=== PATIENT | female | born 1930 | race Caucasian/White ===

== ENCOUNTER 2018-05-01 14:56 | Emergency (ER) | payer MEDICARE ==
--- NOTE | 2018-05-01 15:41 | EDM.PDOC ---
ED HPI GENERAL MEDICAL PROBLEM - General Chief Complaint: Genitourinary Problem Stated Complaint: UTI Time Seen by Provider: 05/01/18 14:56 Source of Information: Reports: Patient History Limitations: Reports: Physical Impairment - History of Present Illness INITIAL COMMENTS - FREE TEXT/NARRATIVE: 87 y.o.w.f was seen in the clinic and transferred to the ed due to suprapubic pain. A bladder scan and UA was recommended. Pt lives at an assisting living place with her , who is helping to take care of her. Pt is a poor historian. no other acute medical issues. BP 137/56 Temp 36.4 RR 16 Pulse ox 97 % on RA pulse 87 Onset Date: 05/01/18 Onset Time: 06:00 Duration: Intermittent, Waxing/Waning Location: Reports: Pelvis Quality: Reports: Burning Severity: Mild Improves with: Reports: Rest Worsens with: Reports: Movement Context: Reports: Other Associated Symptoms: Reports: Other - Related Data Allergies Allergy/AdvReac Type Severity Reaction Status Date / Time No Known Allergies Allergy Verified 05/01/18 18:07 Home Meds: Home Meds . [Unable to Verify Home Med List] 05/01/18 [History] ED ROS GENERAL - Review of Systems Review Of Systems: Unable To Obtain ED EXAM, RENAL/ - Physical Exam Exam: See Below Exam Limited By: Physical Impairment General Appearance: Alert, Mild Distress, Cachetic Eye Exam: Bilateral Eye: Normal Inspection Ears: Normal External Exam Nose: Normal Inspection Throat/Mouth: Normal Voice, No Airway Compromise Head: Atraumatic, Normocephalic Neck: Normal Inspection, Supple, Non-Tender, Full Range of Motion Respiratory/Chest: No Respiratory Distress (poor insp effort) Cardiovascular: Normal Peripheral Pulses, Regular Rate, Rhythm GI/Abdominal: Normal Bowel Sounds (Female) Exam: Deferred Rectal (Female) Exam: Deferred Back Exam: Normal Inspection Extremities: Normal Inspection Neurological: Alert, CN II-XII Intact, Memory Loss Remote Events, Other (unable to ambulate) Psychiatric: Depressed Mood Skin Exam: Warm, Dry, Intact Lymphatic: No Adenopathy Course - Vital Signs Text/Narrative:: 87 y.o.w.f was seen in the clinic and transferred to the ed due to suprapubic pain. A bladder scan and UA was recommended. Pt lives at an assisting living place with her , who is helping to take care of her. Pt is a poor historian. no other acute medical issues. BP 137/56 Temp 36.4 RR 16 Pulse ox 97 % on RA pulse 87 PE: Thin/cachectic 87 y.o.w.f with suprapubic pain Imaging: Bladder scanner showed 497 cc of residual volume in her bladder Labs: UA was neg for UTI Impression: Urinary retention Tx: Sanabria catheter with leg bag Reexam: Improved Plan: D/C with instructions Last Recorded V/S: Last Vital Signs Temp 36.3 C 05/01/18 15:00 Pulse 91 05/01/18 15:00 Resp 16 05/01/18 15:00 BP 137/56 L 05/01/18 15:00 Pulse Ox 97 05/01/18 15:00 - Orders/Labs/Meds Orders: Active Orders 24 hr Category Date Time Status Sanabria Catheter Insertion [Insert Urinary Catheter] [OM. Care 05/01/18 15:45 Ordered PC] Q24H Urinary Catheter Assessment [RC] QSHIFT Care 05/01/18 15:44 Active Labs: Laboratory Tests 05/01/18 Range/Units 16:05 Urine Color Yellow (YELLOW) Urine Appearance Clear (CLEAR) Urine pH 6.0 (5.0-6.5) Ur Specific [place] 1.020 (1.010-1.025) Urine Protein Negative (NEGATIVE) mg/dL Urine Glucose (UA) Normal (NEGATIVE) mg/dL Urine Ketones Negative (NEGATIVE) mg/dL Urine Occult Blood Negative (NEGATIVE) Urine Nitrite Negative (NEGATIVE) Urine Bilirubin Negative (NEGATIVE) Urine Urobilinogen Normal (NEGATIVE) mg/dL Ur Leukocyte Esterase Negative (NEGATIVE) Urine RBC 0-5 (0) Urine WBC 0-5 (0) Ur Squamous Epith Cells Few H (NS,R,O) Urine Bacteria Few H (NS) Urine Mucus Few H (NS) Departure - Departure Time of Disposition: 17:10 Disposition: Home, Self-Care 01 Condition: Good Clinical Impression: Urinary retention with incomplete bladder emptying - Discharge Information Instructions: Acute Urinary Retention, Female, [id number] Referrals: Richard Wilkes MD [Primary Care Provider] - Forms: ED Department Discharge Additional Instructions: Please leave the sanabria catheter in plays for now, please follow up with your PMD /urologist, please come back if your symptoms get worse acutely - My Orders Last 24 Hours: My Active Orders 05/01/18 15:44 Urinary Catheter Assessment [RC] QSHIFT 05/01/18 15:45 Sanabria Catheter Insertion [Insert Urinary Catheter] [OM.PC] Q24H - Assessment/Plan Last 24 Hours: My Active Orders 05/01/18 15:44 Urinary Catheter Assessment [RC] QSHIFT 05/01/18 15:45 Sanabria Catheter Insertion [Insert Urinary Catheter] [OM.PC] Q24H
== END 2018-05-01 17:15 | disposition home or self-care (01) ==
LOC: FB.ED 14:56
DX: R33.9 Retention of urine, unspecified (principal)
CPT/HCPCS: 51702; 51798; 81001; 99283

== ENCOUNTER 2018-06-21 06:05 | Emergency (ER) | payer MEDICARE ==
[2018-06-21] MEDS ORDERED: Sulfamethoxazole/Trimethoprim 800-160 MG Tab PO ONE (08:54)
--- NOTE | 2018-06-21 08:57 | EDM.PDOC ---
ED HPI GENERAL MEDICAL PROBLEM - General Chief Complaint: General Stated Complaint: Fall Time Seen by Provider: 06/21/18 06:10 Source of Information: Reports: Patient, Family History Limitations: Reports: No Limitations - History of Present Illness INITIAL COMMENTS - FREE TEXT/NARRATIVE: c/[facility] fall [facility] in [facility], does not remember what happened, thinks she fell out of bed has c/o pain at R cheek and R hip has chronic hip pain, takes APAP 500 mg TID at baseline, has a THR on L XR of R hip shows mild DJD today, CT of face shows no fractures dtr-in-law reports that pt had sanabria placed 2m ago for urinary retention, pt saw urologist 3w ago who said that the bladder was distention and that there was not much else that could be done with f/u in 1y son reports that Dr Wilkes tx'ed a UTI 1m ago - Related Data Allergies Allergy/AdvReac Type Severity Reaction Status Date / Time hydrocodone Allergy Other Verified 06/21/18 07:11 tramadol Allergy Other Verified 06/21/18 07:10 Home Meds: Home Meds .Cacitrate/Vit D3 650/500 1 tab PO BID 06/21/18 [History] Acetaminophen 500 mg PO TID 06/21/18 [History] Aspirin [Halfprin] 81 mg PO DAILY 06/21/18 [History] Diclofenac Sodium [Voltaren 1% Gel] 1 applic TOP TID 06/21/18 [History] Gluc HCl/Csa/Ld Hy/Hyalur Ac [Glucosamine Chondroitin] 1 each PO BID 06/21/18 [History] Levothyroxine [Synthroid] 50 mcg PO ACBREAKFAST 06/21/18 [History] Mirtazapine 7.5 mg PO DAILY 06/21/18 [History] Omeprazole 20 mg PO DAILY 06/21/18 [History] Polyethylene Glycol 3350 [MiraLAX] 17 gm PO DAILY 06/21/18 [History] Sulfamethoxazole/Trimethoprim [Bactrim 400-80 MG] 1 each PO BID #13 tablet 06/21 [Rx] Past Medical History Genitourinary History: Reports: Other (See Below) Other Genitourinary History: UTI- probable urinary retention FAMILY LAW ATTORNEY History: Reports: Other FAMILY LAW ATTORNEY History: 3 children Neurological History: Reports: Alzheimers Disease ED ROS GENERAL - Review of Systems Review Of Systems: See Below Constitutional: Reports: No Symptoms HEENT: Reports: No Symptoms Respiratory: Reports: No Symptoms Cardiovascular: Reports: No Symptoms Endocrine: Reports: No Symptoms GI/Abdominal: Reports: No Symptoms : Reports: No Symptoms Musculoskeletal: Reports: Joint Pain, Other (face pain) Skin: Reports: No Symptoms Neurological: Reports: No Symptoms Psychiatric: Reports: No Symptoms Hematologic/Lymphatic: Reports: No Symptoms Immunologic: Reports: No Symptoms ED EXAM, GENERAL - Physical Exam Exam: See Below Exam Limited By: No Limitations General Appearance: Alert, WD/WN, No Apparent Distress, Other (alert, pleasant, conversant) Eye Exam: Bilateral Eye: EOMI, PERRL Ears: Normal External Exam, Normal Canal Nose: Normal Inspection, Normal Mucosa, No Blood Throat/Mouth: Normal Inspection, Normal Lips, Normal Teeth, Normal Gums, Normal Oropharynx, Normal Voice, No Airway Compromise Head: Other (moderate swell over R cheek in 10 x 8 x 1 cm area with some central ecchymosis and partial closure of R eye altho able to open spontaeously , 1+ tender over R zygomatic arch and R max sinus) Neck: Normal Inspection, Supple, Non-Tender, Full Range of Motion Respiratory/Chest: No Respiratory Distress Cardiovascular: Regular Rate, Rhythm, No Edema GI/Abdominal: Soft, Non-Tender, No Distention Back Exam: Normal Inspection, Full Range of Motion. No: CVA Tenderness (R), CVA Tenderness (L) Extremities: Normal Inspection, Normal Range of Motion, Non-Tender, Other (good ROM of both hips) Neurological: Alert, CN II-XII Intact, No Motor/Sensory Deficits Psychiatric: Normal Affect, Normal Mood Skin Exam: Warm, Dry, Intact, Normal Color, No Rash Lymphatic: No Adenopathy Course - Orders/Labs/Meds Orders: Active Orders 24 hr Category Date Time Status Hip Min 2V or 3V w Pelvis Rt [CR] Stat Exams 06/21/18 06:31 Taken Max Facial Sinus wo Cont [CT] Stat Exams 06/21/18 06:30 Taken CULTURE URINE [RM] Stat Lab 06/21/18 08:47 Ordered Labs: Laboratory Tests 06/21/18 Range/Units 06:30 Urine Color Yellow (YELLOW) Urine Appearance Cloudy (CLEAR) Urine pH 5.0 (5.0-6.5) Ur Specific [place] 1.020 (1.010-1.025) Urine Protein 100 H (NEGATIVE) mg/dL Urine Glucose (UA) Normal (NORMAL) mg/dL Urine Ketones Negative (NEGATIVE) mg/dL Urine Occult Blood Large H (NEGATIVE) Urine Nitrite Negative (NEGATIVE) Urine Bilirubin Negative (NEGATIVE) Urine Urobilinogen Normal (NEGATIVE) mg/dL Ur Leukocyte Esterase Large H (NEGATIVE) Urine RBC >100 H (0-5) Urine WBC >100 H (0-5) Ur Squamous Epith Cells Few H (NS,R,O) Urine Bacteria Many H (NS) Departure - Departure Time of Disposition: 08:51 Disposition: DC/Tfer to [facility] Condition: Good Clinical Impression: Facial contusion, Osteoarthritis of right hip, Urinary tract infection - Discharge Information *PRESCRIPTION DRUG MONITORING PROGRAM REVIEWED*: Not Applicable *COPY OF PRESCRIPTION DRUG MONITORING REPORT IN PATIENT ANGELA: Not Applicable Prescriptions: Sulfamethoxazole/Trimethoprim [Bactrim 400-80 MG] 1 each PO BID #13 tablet Instructions: Catheter-Associated Urinary Tract Infection FAQs - [facility] Referrals: Richard Wilkes MD [Primary Care Provider] - Additional Instructions: Continue current meds. Increase acetaminophen to 500 mg 2 tabs TID for 1 week, then decrease back to 500 mg 1 tab TID. For infection, take Bactrim DS 1 tab 2 times a day for 1 week. Recheck a urinalysis in 10 days. Change sanabria. See her physician in one week. Return to ED if feeling worse. - My Orders Last 24 Hours: My Active Orders 06/21/18 06:30 Max Facial Sinus wo Cont [CT] Stat 06/21/18 06:31 Hip Min 2V or 3V w Pelvis Rt [CR] Stat 06/21/18 08:47 CULTURE URINE [RM] Stat - Assessment/Plan Last 24 Hours: My Active Orders 06/21/18 06:30 Max Facial Sinus wo Cont [CT] Stat 06/21/18 06:31 Hip Min 2V or 3V w Pelvis Rt [CR] Stat 06/21/18 08:47 CULTURE URINE [RM] Stat
== END 2018-06-21 09:35 ==
LOC: FB.ED 06:05
DX: S00.83XA Contusion of other part of head, initial encounter (principal); M16.11 Unilateral primary osteoarthritis, right hip; N39.0 Urinary tract infection, site not specified; G30.9 Alzheimer's disease, unspecified; F02.80 Dementia in other diseases classified elsewhere, unspecified severity, without behavioral disturbance, psychotic disturbance, mood disturbance, and anxiety; Z79.899 Other long term (current) drug therapy; Z88.5 Allergy status to narcotic agent; Z88.6 Allergy status to analgesic agent; Z79.82 Long term (current) use of aspirin; W06.XXXA Fall from bed, initial encounter
CPT/HCPCS: 70486; 73502-RT; 81001; 87086; 87186; 99284-25

== ENCOUNTER 2018-07-30 08:05 | Day surgery (SDC) | payer MEDICARE ==
[2018-07-30] MEDS ORDERED: Ondansetron 4 MG/2 ML SDV IVPUSH ONE (08:06)
[2018-07-30] MEDS ORDERED: Lidocaine 1% PF 2 ML SDV INJECT ONE (08:06)
[2018-07-30] MEDS ORDERED: Rocuronium 50 MG/5 ML Vial IV ONE (08:06)
[2018-07-30] MEDS ORDERED: fentaNYL 100 MCG/2 ML SDV IV ONE (08:06)
[2018-07-30] MEDS ORDERED: Propofol 200 MG/20 ML SDV IV ONE (08:06)
[2018-07-30] MEDS ORDERED: Lidocaine 2% 100 MG/5 ML Syringe IVPUSH ONE (08:06)
[2018-07-30] MEDS ORDERED: Glycopyrrolate 0.2 MG/ML 5 ML MDV IV ONE (08:06)
[2018-07-30] MEDS ORDERED: Phenylephrine 1% 10 MG/ML SDV IV ONE (08:06)
[2018-07-30] MEDS ORDERED: Midazolam 1 MG/ML 2 ML SDV IV ONE (08:06)
[2018-07-30] MEDS ORDERED: Ropivacaine 0.5% 5 MG/ML 30 ML SDV INJECT ONE (08:06)
[2018-07-30] MEDS ORDERED: Lactated Ringers 1,000 ML IV ONE (08:06)
[2018-07-30] MEDS ORDERED: Neostigmine Methylsulfate 10 MG/10 ML MDV IVPUSH ONE (08:06)
[2018-07-30] MEDS ORDERED: Sodium Chloride 0.9% 10 ML Syringe FLUSH PRN (08:30)
[2018-07-30] MEDS ORDERED: Scopolamine 1.5 MG Transdermal Patch TRDERM ONE (08:30)
[2018-07-30] MEDS ORDERED: ceFAZolin 2 GM in Premix Bag 1 BAG IV ONE (08:30)
[2018-07-30] MEDS ORDERED: ceFAZolin 2 GM in Sodium Chloride 0.9% 100 ML IV ONE (08:30)
[2018-07-30] MEDS ORDERED: Ropivacaine 49.25 ML, Ketorolac 30 MG, EPINEPHrine 0.5 MG, cloNIDine 80 MCG, Sodium Chl... INJECT ONE ×5 (08:30)
[2018-07-30] MEDS ORDERED: Acetaminophen 500 MG Tab PO ONE (08:30)
[2018-07-30] MEDS ORDERED: Tranexamic Acid 3,000 MG, Sodium Chloride 0.9% 100 ML IRR ONE ×2 (09:00)
[2018-07-30] MEDS: Lactated Ringers 1,000 ML IV SCH ×2 (09:12→15:58)
[2018-07-30] MEDS ORDERED: Magnesium Hydroxide 400 MG/5 ML Susp 30 ML Cup PO PRN (12:33)
[2018-07-30] MEDS ORDERED: Sennosides 8.6 MG Tab PO PRN (12:33)
[2018-07-30] MEDS ORDERED: Ondansetron 4 MG/2 ML SDV IVPUSH PRN (12:33)
[2018-07-30] MEDS ORDERED: Docusate Sodium 100 MG Cap PO PRN (12:33)
[2018-07-30] MEDS ORDERED: traMADol 50 MG Tab PO PRN (12:33)
[2018-07-30] MEDS ORDERED: Morphine 2 MG/ML Syringe IVPUSH PRN (12:33)
[2018-07-30] MEDS ORDERED: Famotidine 20 MG/2 ML SDV IVPUSH SCH (13:00)
--- NOTE | 2018-07-30 13:56 | PCM.SN ---
- Free Text/Narrative Note: ANESTHESIA ACUTE PAIN SERVICE Date: 07/30/2018 Time: 0950 to 1000 Preoperative Dx: Left Humeral Head Fx Postoperative Rx: Left Shoulder Hemiarthroplasty Surgeon request Postoperative Pain Control per Regional Anesthesia Procedure: Left Interscalene Nerve Block with Ultrasound [U/S] Guidance and Nerve stimulation. Risks and benefits discussed with the family and the patient including block failure or inadequate pain relief. The family [POA] and the patient agree to proceed and a consent obtained. Monitors: NIBP, heart rate, SpO2 and O2 per nasal cannula at 3L/min Sedation : Versed .5 mg IV She was easily aroused and orientated to questions throughout this procedure. Using direct U/S visualization, I did a preprocedure scan locating the left Subclavian Artery and Brachial Plexus. I prepped the area with Chlora-Prep X 1 swab and allowed it to dry. Using aseptic technique, I relocated my insertion site and infiltrated it with 2 ml's of 1% Lidocaine plain using a 27 Ga 1.25 inch needle. With using the U/S I inserted and advanced a 22 Ga 2 inch Stimuplex Ultra 360 Insulated Echogenic Needle to a good placement. I had a positive response of her left forearm at .44 mA using the nerve stimulator. The response stopped after an injection of 1 ml of normal saline through the needle. Under direct U/S visualization, a total of 20 ml's .5% Naropin in divided doses was given slowly and multiple negative aspirations for blood were done. She tolerated this very well. She had no shoulder pain after this nerve block and no apparent complications were noted. Documentation: Please see the PAX System in Radiology for U/S pictures. Thank you for allowing us to provide this service. Kevin Ugalde CRNA Kathryn
[2018-07-30] MEDS ORDERED: Acetaminophen 500 MG Tab PO SCH (14:00)
[2018-07-30] MEDS: Acetaminophen 500 MG Tab PO SCH ×2 (14:10→20:30)
[2018-07-30] MEDS: Famotidine/Normal Saline 20 MG/50 ML BAG IV SCH (14:15)
--- NOTE | 2018-07-30 17:07 | OR ---
DATE OF OPERATION: 07/30/2018 SURGEON: Nick Collins DO PREOPERATIVE DIAGNOSIS: Left shoulder proximal humerus fracture. POSTOPERATIVE DIAGNOSIS: Chronic left proximal humerus fracture. ANESTHESIA: General endotracheal intubation plus interscalene block. PROCEDURE: Left shoulder hemiarthroplasty. ESTIMATED BLOOD LOSS: 100 mL. COMPLICATIONS: None. SPECIMEN: None. DISCHARGE DISPOSITION: Stable to PACU. INSTRUMENTATION: Andree size-12 modular humeral stem press-fit and a size-48 24-mm thickness ReUnion TSA single-radius humeral head. INDICATIONS FOR THE PROCEDURE: The patient was seen in clinic two days ago. The patient's family had noticed some bruising on the medial aspect of her arm and that she was using it less. She does live at a care facility for dementia. Preoperative imaging showed a proximal humerus fracture at the anatomic neck. Risks and benefits of the procedure were explained to the patient. Informed consent was obtained. DETAILS OF PROCEDURE: The patient was seen preoperatively by myself and the Anesthesia staff at the preoperative holding area, where the operative site was marked. She was brought to another preoperative holding area for an interscalene block, which was performed. She was then brought to the operative suite, where general anesthesia was administered. She was placed into a beach- chair position. All extremities were found to be well padded. The neck was slightly flexed. The left upper extremity was then prepped and draped in a sterile manner. Time-out was called identifying the correct patient, the correct procedure, the correct site, and that the antibiotics had been begun within the appropriate period of time. An incision was made on the medial aspect of the coracoid and proximal about 1 cm in an oblique manner down just laterally to the axillary fold. Bleeding during the case was controlled with Bovie electrocautery. We went down to the deltopectoral interval, which was easily identified. The cephalic vein was identified and it went through the deltopectoral interval. The cephalic vein did tear and this was ligated using 2-0 Vicryl and cautery. I then went through the deltopectoral fascia and identified the capsule. I then split the capsule and tagged both sides of the capsule and the subscapularis. I then removed the subscapularis and moved it medially and then removed the proximal 1 cm of the pectoralis major insertion on the humerus. The axillary nerve was palpated and avoided during the case. Inferiorly, the humeral head was identified, and I used bone tenaculums to hold this and then removed it from its capsular attachments circumferentially. The rotator cuff was never identified during the case. The biceps tendon was not visualized during the case. The humeral head was obviously a chronic fracture. It looked like this had actually healed previously, maybe two other times, and then when we brought the shaft proximal and anterior, it was evident that this was chronic as there was overgrowth over the midportion of the shaft. We then put in an entry reamer and subsequent reamers up to a 12. No medial calcar was visualized as I think that this had worn down over time or was part of a fracture fragment, which was no longer there after wearing down. We then broached from 7 to 12 and then I placed some trial heads. It was evident to me at that point that because of the previous fractures and the chronicity, that I would need to take down more of the humeral shaft to approximate where the calcar used to be. I did this and then re- broached and then placed multiple trials and finally settled on the 24 x 48. I took a radiograph of this using sterilely-draped fluoroscopy unit after suturing the anterior capsule to make sure that this was going to stay in. After I was convinced that it will be stable at least to 80 degrees of flexion and abduction, that we removed all of our components, copiously irrigated with Betadine-infused irrigation and then placed our final components in place. What I did then was to do a [id number] imbrication of the anterior capsule to further tighten it, and I did this with two #5 Ethibond and #1 STRATAFIX in a running manner. I then used a #1 Ethibond to attach the subscapularis to its insertion point and then used a STRATAFIX to close the inferior portion of the capsule in continuity with the anterior capsule for stability. I then took final films in multiple positions including full internal rotation, 50 degrees external rotation, as well as abduction and external rotation. The components stayed located throughout this range of motion. We then irrigated again with saline. I did apply topical TXA as well as applied a periarticular injection and then closed the deltopectoral interval with #1 STRATAFIX and the subcutaneous closure with #1 STRATAFIX in a running manner, followed by skin monet, followed by Betadine-soaked Adaptic and a sterile dressing. The patient was then allowed to awaken from general anesthesia, transferred to her hospital bed and taken to the PACU in a stable condition. /[id number] BS/MODL
[2018-07-30] MEDS ORDERED: ceFAZolin 2 GM in Sodium Chloride 0.9% 50 ML IV SCH (18:00)
[2018-07-30] MEDS: RIVASTIGMINE TARTRATE 1.5 MG PO SCH (18:30)
[2018-07-30] MEDS: ceFAZolin 1 GM Vial IV SCH (18:30)
[2018-07-30] MEDS ORDERED: [UNRECOGNIZED DRUG - OTHER] PO SCH (21:00)
[2018-07-30] MEDS ORDERED: VIT D3 PO SCH (21:00)
[2018-07-30] MEDS ORDERED: Non-Formulary Medication 1 Each (Mirtazapine [Mirtazapine] 15 MG) PO SCH (21:00)
[2018-07-31] MEDS: Lactated Ringers 1,000 ML IV SCH (00:52)
[2018-07-31] MEDS: ceFAZolin 1 GM Vial IV SCH (01:03)
[2018-07-31] MEDS: Famotidine/Normal Saline 20 MG/50 ML BAG IV SCH (01:04)
[2018-07-31] MEDS: Levothyroxine 50 MCG Tab*PTOM PO SCH ×2 (05:17→08:41)
--- NOTE | 2018-07-31 08:41 | PCM.CONS ---
H&P History of Present Illness - General Date of Service: 07/31/18 Admit Problem/Dx: Admission Diagnosis/Problem Admission Diagnosis/Problem Shoulder pain Source of Information: Patient, Old Records History Limitations: Reports: Other (Dementia) - History of Present Illness Initial Comments - Free Text/Narative: This is an 88-year-old female patient lives at [facility] in the memory unit. She has a history of late onset Alzheimer's disease. She had a humeral head fracture and left arm. Dr. Collins repair yesterday. We've been asked to consult regards to medication management in the hospital. Today the patient has no concerns. She says yesterday she had bad pain in her left arm but now her pain is controlled. She denies fevers, chills, chest pain, palpitations, shortness of breath, wheezing or cough or leg swelling. Left Shoulder Pain Score (Numeric/FACES): 8 - Related Data Allergies/Adverse Reactions: Allergies Allergy/AdvReac Type Severity Reaction Status Date / Time hydrocodone Allergy Other Verified 07/30/18 08:38 tramadol Allergy Other Verified 07/30/18 08:38 Home Medications: Home Meds Acetaminophen 1,000 mg PO 06,14,22 06/21/18 [History] Aspirin [Halfprin] 81 mg PO DAILY 06/21/18 [History] Diclofenac Sodium [Voltaren 1% Gel] 4 gm TOP TID 06/21/18 [History] Gluc HCl/Csa/Ld Hy/Hyalur Ac [Glucosamine Chondroitin] 1 each PO BID 06/21/18 [History] Levothyroxine [Synthroid] 50 mcg PO ACBREAKFAST 06/21/18 [History] Mirtazapine 15 mg PO BEDTIME 06/21/18 [History] Polyethylene Glycol 3350 [MiraLAX] 17 gm PO DAILY 06/21/18 [History] Calcium Carb & Citrate/Vit D3 [Calcium + D3 ER Tablet] 2 tab PO BIDMEALS [History] Omeprazole 20 mg PO ACBREAKFAST 07/29/18 [History] Rivastigmine Tartrate [Rivastigmine] 1.5 mg PO BIDMEALS 07/29/18 [History] traZODone HCl [Trazodone HCl] 25 mg PO BEDTIME 07/30/18 [History] Past Medical History Gastrointestinal History: Reports: GERD Genitourinary History: Reports: Chronic Renal Insuffiency, Retention, Urinary, Other (See Below) Other Genitourinary History: UTI- probable urinary retention SOFTWARE PROJECT [employer] History: Reports: Other OB/BYN History: 3 children Musculoskeletal History: Reports: Fracture, Osteoarthritis Other Musculoskeletal History: HUMERAL HEAD FRACTURE OF LEFT ARM, METACARPAL FX Neurological History: Reports: Alzheimers Disease Psychiatric History: Reports: Alzheimers Disease Endocrine/Metabolic History: Reports: Hypothyroidism - Past Surgical History HEENT Surgical History: Reports: Tonsillectomy Other HEENT Surgeries/Procedures: NECK SURGERY GI Surgical History: Reports: Appendectomy, Cholecystectomy, Hernia, Abdominal Female Surgical History: Reports: D&C Musculoskeletal Surgical History: Reports: Hip Replacement Social & Family History - Tobacco Use Smoking Status *Q: Never Smoker - Caffeine Use Caffeine Use: Reports: Tea - Recreational Drug Use Recreational Drug Use: No Drug Use in Last 12 Months: No - Living Situation & Occupation Living situation: Reports: Assisted Living Occupation: Retired H&P Review of Systems - Review of Systems: Review Of Systems: See Below General: Reports: No Symptoms HEENT: Reports: No Symptoms Pulmonary: Reports: No Symptoms Cardiovascular: Reports: No Symptoms Gastrointestinal: Reports: No Symptoms Genitourinary: Reports: No Symptoms Musculoskeletal: Reports: Shoulder Pain Skin: Reports: No Symptoms Psychiatric: Reports: No Symptoms Neurological: Reports: No Symptoms Hematologic/Lymphatic: Reports: No Symptoms Immunologic: Reports: No Symptoms Exam - Exam Exam: See Below - Vital Signs Vital Signs: Last Vital Signs Temp 97.8 F 07/30/18 18:15 Pulse 68 07/30/18 18:15 Resp 20 07/30/18 18:15 BP 102/62 07/30/18 18:15 Pulse Ox 95 07/30/18 18:15 Weight: 124 lb - Exam General: Alert, Cooperative. No: Oriented HEENT: Hearing Intact, Mucosa Moist & [place], Posterior Pharynx Clear, TMs Clear Neck: Supple, Trachea Midline. No: Lymphadenopathy, Carotid Bruit Lungs: Clear to Auscultation, Normal Respiratory Effort. No: Crackles, Rales, Rhonchi Cardiovascular: Regular Rate, Regular Rhythm, Normal S1, Normal S2. No: Systolic Murmur, Diastolic Murmur GI/Abdominal Exam: Normal Bowel Sounds, Soft, Non-Tender. No: No Distention Back Exam: Normal Inspection Extremities: No Pedal Edema, Other (Left arm in a sling. She can move her left hand without any difficulty.) Skin: Warm, Dry, Intact Neuro Extensive - Mental Status: Alert, Normal Mood/Affect, Normal Cognition. No: Oriented x3, Memory Intact Psychiatric: Alert, Normal Affect, Normal Mood - Patient Data Lab Results Last 24 hrs: Laboratory Results - last 24 hr 07/31/18 07/31/18 Range/Units 06:14 06:14 WBC 10.4 (4.5-12.0) X10-3/uL RBC 2.99 L (3.23-5.20) x10(6)uL Hgb 9.4 L (11.5-15.5) g/dL Hct 28.1 L (30.0-51.3) % MCV 93.8 (80-96) fL MCH 31.6 (27.7-33.6) pg MCHC 33.6 (32.2-35.4) g/dL RDW 12.6 (11.5-15.5) % Plt Count 247 (125-369) X10(3)uL MPV 8.8 (7.4-10.4) fL Neut % (Auto) 80.2 (46-82) % Lymph % (Auto) 10.0 L (13-37) % [place] % (Auto) 8.1 (4-12) % Eos % (Auto) 1 (1.0-5.0) % Baso % (Auto) 1 (0-2) % Neut # (Auto) 8.4 H (1.6-8.3) # Lymph # (Auto) 1.0 (0.6-5.0) # [place] # (Auto) 0.8 (0.0-1.3) # Eos # (Auto) 0.1 (0.0-0.8) # Baso # (Auto) 0.1 (0.0-0.2) # Sodium 140 (135-145) mmol/L Potassium 4.0 (3.5-5.3) mmol/L Chloride 105 (100-110) mmol/L Carbon Dioxide 27 (21-32) mmol/L BUN 20 H (7-18) mg/dL Creatinine 1.2 H (0.55-1.02) mg/dL Est Cr Clr Drug Dosing 29.88 mL/min Estimated GFR (MDRD) 43 L (>60) BUN/Creatinine Ratio 16.7 (9-20) Glucose 118 H (80-116) mg/dL Calcium 8.8 (8.6-10.2) mg/dL Result Diagrams: 07/31/18 06:14 07/31/18 06:14 Consult PN Assessment/Plan Procedures: Procedures BLOOD TYPING SEROLOGIC ABO (07/28/18) BLOOD TYPING SEROLOGIC RH(D) (07/28/18) CT MAXILLOFACIAL W/O DYE (06/21/18) EMERGENCY DEPT VISIT (06/21/18) EMERGENCY DEPT VISIT (05/01/18) INSERT TEMP BLADDER CATH (05/04/18) MICROBE SUSCEPTIBLE JUAN ALBERTO (06/21/18) RBC ANTIBODY SCREEN (07/28/18) ROUTINE VENIPUNCTURE (07/28/18) URINALYSIS AUTO W/SCOPE (06/21/18) URINE CULTURE/COLONY COUNT (06/21/18) US EXAM ABDOM COMPLETE (05/07/18) US URINE CAPACITY MEASURE (05/01/18) X-RAY EXAM HIP UNI 2-3 VIEWS (06/21/18) (1) Status post total shoulder arthroplasty SNOMED Code(s): 513539493, 229949957 Code(s): Z96.619 - PRESENCE OF UNSPECIFIED ARTIFICIAL SHOULDER JOINT Current Visit: Yes (2) Alzheimers disease SNOMED Code(s): 56068548 Code(s): G30.9 - ALZHEIMER'S DISEASE, UNSPECIFIED; F02.80 - DEMENTIA IN OTH DISEASES CLASSD ELSWHR W/O BEHAVRL DISTURB Current Visit: Yes (3) Palliative care status SNOMED Code(s): 206798803 Code(s): Z51.5 - ENCOUNTER FOR PALLIATIVE CARE Current Visit: Yes (4) Stage III chronic kidney disease SNOMED Code(s): 622569560 Code(s): N18.3 - CHRONIC KIDNEY DISEASE, STAGE 3 (MODERATE) Current Visit: Yes (5) Hypothyroidism SNOMED Code(s): 78629499 Code(s): E03.9 - HYPOTHYROIDISM, UNSPECIFIED Current Visit: Yes (6) Osteoarthritis of knees, bilateral SNOMED Code(s): 043382766735325 Code(s): M17.0 - BILATERAL PRIMARY OSTEOARTHRITIS OF KNEE Current Visit: Yes (7) Urinary retention SNOMED Code(s): 170975966 Code(s): R33.9 - RETENTION OF URINE, UNSPECIFIED Current Visit: Yes (8) GERD (gastroesophageal reflux disease) SNOMED Code(s): 211969650 Code(s): K21.9 - GASTRO-ESOPHAGEAL REFLUX DISEASE WITHOUT ESOPHAGITIS Current Visit: Yes Problem List Initiated/Reviewed/Updated: Yes Plan: 1. Medical management along side with orthopedics doing surgical management 2. Patient's a DNR and I'll be changed of the surgeries over. 3. Patient's on Lovenox for DVT prophylaxis. 4. Home medications of and reconcile except for the trazodone. 5. Regular diet 6. PT/OT evaluation
[2018-07-31] MEDS ORDERED: Enoxaparin 30 MG/0.3 ML Syringe SUBCUT SCH (09:00)
--- NOTE | 2018-07-31 09:11 | US ---
INDICATION: [place] block. ULTRASOUND, RFA GUIDANCE, LEFT SHOULDER: Multiple ultrasonic images and real time imaging were utilized in guidance for left shoulder nerve block. MTDD
--- NOTE | 2018-07-31 09:21 | CR ---
INDICATION: Left shoulder arthroplasty. C-ARM FLUOROSCOPY UP TO 1 HOUR IN OR: 0.3 minutes C-arm fluoroscopy time were utilized in guidance for shoulder arthroplasty. Five fluoroscopic spot images were obtained, revealing adequate position and alignment of the humeral prosthesis for shoulder arthroplasty. Position and alignment appear to be satisfactory, as visualized. A definite complicating process was not identified. MTDD
[2018-07-31] MEDS: RIVASTIGMINE TARTRATE 1.5 MG PO SCH (09:23)
[2018-07-31] MEDS: Acetaminophen 500 MG Tab PO SCH (09:26)
--- NOTE | 2018-07-31 10:18 | PCM.OPNOTE ---
- General Post-Op/Procedure Note Date of Surgery/Procedure: 07/30/18 Operative Procedure(s): left shoulder hemiarthroplasty Pre Op Diagnosis: left shoulder proximal humerus fx Post-Op Diagnosis: left shoulder chronic proximal humerus fx Anesthesia Technique: General ET Tube Primary Surgeon: Nick Collins Anesthesia Provider: Kevin Ugalde EBL in mLs: 100 Complications: none Condition: Good Free Text/Narrative:: Intake & Output 07/30/18 07/31/18 07/31/18 22:59 06:59 14:59 Intake Total 880 Output Total 425 Balance -425 880
--- NOTE | 2018-07-31 10:26 | PCM.DCSUM1 ---
Discharge Summary - Hospital Course HPI Initial Comments: 88 yo female with chronic left proximal humerus fracture after multiple falls Diagnosis: Stroke: No Modified [place] Scale: Mod.Sev.Disability ;Unable to Walk/Attend Bodily Needs W/ O Assistance Modified [place] Scale Score: 4 - Discharge Data Discharge Date: 07/31/18 Discharge Disposition: Home, Self-Care 01 Condition: Good - Discharge Diagnosis/Problem(s) (1) Closed fracture of left proximal humerus SNOMED Code(s): 96130942 ICD Code: S42.202A - UNSP FRACTURE OF UPPER END OF LEFT HUMERUS, INIT FOR CLOS FX Status: Acute Current Visit: Yes Qualifiers: Encounter type: initial encounter Fracture alignment: displaced (2) Status post total shoulder arthroplasty SNOMED Code(s): 683934723, 840452666 ICD Code: Z96.619 - PRESENCE OF UNSPECIFIED ARTIFICIAL SHOULDER JOINT Status: Acute Current Visit: Yes - Patient Summary/Data Operative Procedure(s) Performed: left shoulder hemiarthroplasty Complications: none Consults: Consultations 07/30/18 12:33 Respiratory Care Assess and Treatment [CONS] Routine Comment: Physician Instructions: Post-Op Pneumonia Prevention 07/30/18 12:41 Consult to Physician [CONS] Routine Consulting Provider: Bebo Lam Courtesy Call Completed to Consulting Physician: [email or web address] 07/30/18 15:00 OT Evaluation and Treatment [CONS] Routine Please Evaluate and Treat. OT Reason for Consult: Strengthening This query below is only for informational purposes and is not editable. Admission Diagnosis/Problem: Shoulder pain PT Evaluation and Treatment [CONS] Routine Please Evaluate and Treat. PT Reason for Consult: Strengthening This query below is only for informational purposes and is not editable. Admission Diagnosis/Problem: Shoulder pain Recommended Follow-up Testing/Procedures: f/u in 2 weeks in clinic. Clinic will call with appt time and date Hospital Course: uneventful recovery post op without complications - Patient Instructions Diet: Usual Diet as Tolerated Activity: Non Weight Bearing, No Strenuous Activities Activity, Other: no rom of left upper extremity, keep in sling Driving: Do Not Drive Showering/Bathing: May Shower, No Tub Bathing/Swimming Wound/Incision Care: Keep Operative Site/Wound Site Clean and Dry Wound/Incision, Other: change dressing 08/01 and then daily thereafter Notify Provider of: Fever, Increased Pain, Swelling and Redness, Drainage, Nausea and/or Vomiting - Discharge Plan *PRESCRIPTION DRUG MONITORING PROGRAM REVIEWED*: Not Applicable *COPY OF PRESCRIPTION DRUG MONITORING REPORT IN PATIENT ANGELA: Not Applicable Home Medications: Home Meds Acetaminophen 1,000 mg PO 06,14,22 06/21/18 [History] Aspirin [Halfprin] 81 mg PO DAILY 06/21/18 [History] Diclofenac Sodium [Voltaren 1% Gel] 4 gm TOP TID 06/21/18 [History] Gluc HCl/Csa/Ld Hy/Hyalur Ac [Glucosamine Chondroitin] 1 each PO BID 06/21/18 [History] Levothyroxine [Synthroid] 50 mcg PO ACBREAKFAST 06/21/18 [History] Mirtazapine 15 mg PO BEDTIME 06/21/18 [History] Polyethylene Glycol 3350 [MiraLAX] 17 gm PO DAILY 06/21/18 [History] Calcium Carb & Citrate/Vit D3 [Calcium + D3 ER Tablet] 2 tab PO BIDMEALS [History] Omeprazole 20 mg PO ACBREAKFAST 07/29/18 [History] Rivastigmine Tartrate [Rivastigmine] 1.5 mg PO BIDMEALS 07/29/18 [History] traZODone HCl [Trazodone HCl] 25 mg PO BEDTIME 07/30/18 [History] Oxygen Therapy Mode: Room Air - Discharge Summary/Plan Comment DC Time >30 min.: No - Review of Systems General: Reports: Weakness HEENT: Reports: No Symptoms Pulmonary: Reports: No Symptoms Cardiovascular: Reports: No Symptoms Gastrointestinal: Reports: No Symptoms Genitourinary: Reports: No Symptoms Musculoskeletal: Reports: Arm Pain, Joint Pain, Joint Swelling Skin: Reports: Bruising Neurological: Reports: Confusion Psychiatric: Reports: Confusion Systems Review Comment: patient is at baseline neuro/psych - Patient Data Vitals - Most Recent: Last Vital Signs Temp 97.8 F 07/30/18 18:15 Pulse 68 07/30/18 18:15 Resp 20 07/30/18 18:15 BP 102/62 07/30/18 18:15 Pulse Ox 95 07/30/18 18:15 Weight - Most Recent: 124 lb I&O - Last 24 hours: Intake & Output 07/30/18 07/31/18 07/31/18 22:59 06:59 14:59 Intake Total 880 Output Total 425 Balance -425 880 Lab Results - Last 24 hrs: Laboratory Results - last 24 hr 07/31/18 07/31/18 Range/Units 06:14 06:14 WBC 10.4 (4.5-12.0) X10-3/uL RBC 2.99 L (3.23-5.20) x10(6)uL Hgb 9.4 L (11.5-15.5) g/dL Hct 28.1 L (30.0-51.3) % MCV 93.8 (80-96) fL MCH 31.6 (27.7-33.6) pg MCHC 33.6 (32.2-35.4) g/dL RDW 12.6 (11.5-15.5) % Plt Count 247 (125-369) X10(3)uL MPV 8.8 (7.4-10.4) fL Neut % (Auto) 80.2 (46-82) % Lymph % (Auto) 10.0 L (13-37) % [place] % (Auto) 8.1 (4-12) % Eos % (Auto) 1 (1.0-5.0) % Baso % (Auto) 1 (0-2) % Neut # (Auto) 8.4 H (1.6-8.3) # Lymph # (Auto) 1.0 (0.6-5.0) # [place] # (Auto) 0.8 (0.0-1.3) # Eos # (Auto) 0.1 (0.0-0.8) # Baso # (Auto) 0.1 (0.0-0.2) # Sodium 140 (135-145) mmol/L Potassium 4.0 (3.5-5.3) mmol/L Chloride 105 (100-110) mmol/L Carbon Dioxide 27 (21-32) mmol/L BUN 20 H (7-18) mg/dL Creatinine 1.2 H (0.55-1.02) mg/dL Est Cr Clr Drug Dosing 29.88 mL/min Estimated GFR (MDRD) 43 L (>60) BUN/Creatinine Ratio 16.7 (9-20) Glucose 118 H (80-116) mg/dL Calcium 8.8 (8.6-10.2) mg/dL Med Orders - Current: Current Medications Acetaminophen (Tylenol Extra Strength) 1,000 mg PO TID [facility] Last Admin: 07/31/18 09:26 Dose: 1,000 mg Docusate Sodium (Colace) 100 mg PO BID PRN PRN Reason: Constipation Enoxaparin Sodium (Lovenox) 30 mg SUBCUT DAILY [facility] Last Admin: 07/31/18 09:13 Dose: 30 mg Lactated Ringer's (Ringers, Lactated) 1,000 mls @ 125 mls/hr IV ASDIRECTED [facility] Last Admin: 07/31/18 00:52 Dose: 125 mls/hr Levothyroxine Sodium (Synthroid) 50 mcg PO ACBREAKFAST [facility] Last Admin: 07/31/18 08:41 Dose: Not Given Magnesium Hydroxide (Milk Of Magnesia) 30 ml PO BID PRN PRN Reason: Constipation Morphine Sulfate (Morphine) 1 mg IVPUSH Q2H PRN PRN Reason: pain Last Admin: 07/31/18 01:41 Dose: 1 mg Non-Formulary Medication (Calcium Carb & Citrate/Vit D3 [Calcium + D3 Er Tablet] ) 2 tab PO BIDMEALS [facility] Last Admin: 07/31/18 09:12 Dose: 2 tab Non-Formulary Medication (Mirtazapine [Mirtazapine]) 15 mg PO BEDTIME [facility] Last Admin: 07/30/18 20:30 Dose: 15 mg Non-Formulary Medication (Rivastigmine Tartrate [Rivastigmine]) 1.5 mg PO BIDMEALS [facility] Last Admin: 07/31/18 09:23 Dose: 1.5 mg (Omeprazole [ Omeprazole] 20 Mg) * Ptom 0 mg PO DAILY@0600 [facility] Ondansetron HCl (Zofran) 8 mg IVPUSH Q8H PRN PRN Reason: Nausea/Vomiting Senna (Senna) 8.6 mg PO BID PRN PRN Reason: Constipation Sodium Chloride (Saline Flush) 10 ml FLUSH ASDIRECTED PRN PRN Reason: Keep Vein Open Last Admin: 07/30/18 18:32 Dose: 10 ml Trazodone HCl (Trazodone) 25 mg PO BEDTIME [facility] Discontinued Medications Acetaminophen (Tylenol Extra Strength) 1,000 mg PO ONETIME ONE Stop: 07/30/18 08:31 Last Admin: 07/30/18 08:44 Dose: 1,000 mg Acetaminophen (Tylenol Extra Strength) 500 mg PO TID [facility] Cefazolin Sodium (Ancef) 1 gm IV Q8H [facility] Stop: 07/31/18 02:01 Last Admin: 07/31/18 01:03 Dose: 1 gm Ropivacaine 49.25 ml/Ketorolac Tromethamine 30 mg/Epinephrine HCl 0.5 mg/ Clonidine HCl 80 mcg/ Sodium Chloride 48.45 ml 0 ml INJECT ONETIME ONE Stop: 07/30/18 08:31 Last Admin: 07/30/18 10:48 Dose: 100 syringe Tranexamic Acid 3,000 mg/ (Sodium Chloride 100 ml) 0 mg IRR ONETIME ONE Stop: 07/30/18 09:01 Last Admin: 07/30/18 10:48 Dose: 100 irr Cefazolin Sodium/Dextrose 2 gm (/ Premix) 50 mls @ 100 mls/hr IV ONETIME ONE Stop: 07/30/18 08:59 Last Admin: 07/30/18 09:26 Dose: 100 mls/hr Cefazolin Sodium 2 gm/ Sodium (Chloride) 50 mls @ 100 mls/hr IV Q8H [facility] Stop: 07/31/18 02:29 Famotidine (Famotidine In Ns Premix) 20 mg in 50 mls @ 200 mls/hr IV Q12H [facility] Last Admin: 07/31/18 01:04 Dose: 200 mls/hr Scopolamine (Transderm-Scop) 1.5 mg TRDERM ONETIME ONE Stop: 07/30/18 08:31 Last Admin: 07/30/18 08:44 Dose: Not Given Tramadol HCl (Ultram) 50 mg PO Q4H PRN PRN Reason: Pain - Exam General: Reports: Alert, Oriented, Cooperative, Moderate Distress HEENT: Reports: Pupils Equal, Pupils Reactive, Mucous Membr. Moist/[place] Neck: Reports: Supple, Trachea Midline Lungs: Reports: Normal Respiratory Effort GI/Abdominal Exam: No Distention Skin: Reports: Warm, Dry, Intact Wound/Incisions: Reports: Healing Well, Dressing Dry and Intact, No Drainage Neurological: Reports: No New Focal Deficit Psy/Mental Status: Reports: Alert Discharge Operative/Procedures - Procedures Performed Operations: left shoulder hemiarthroplasty
[2018-07-31] MEDS ORDERED: traZODone 50 MG Tab *PTOM PO SCH (21:00)
[2018-08-01] MEDS ORDERED: (Omeprazole [Omeprazole] 20 MG) *PTOM PO SCH (06:00)
== END 2018-07-31 13:33 | disposition home health service (06) ==
LOC: FB.SDS 08:05 → FB.MS 13:40 → FB.SDS 07-31 13:33
PROVIDERS: ATTEND Orthopaedic Surgery
DX: S42.292A Other displaced fracture of upper end of left humerus, initial encounter for closed fracture (principal); I25.10 Atherosclerotic heart disease of native coronary artery without angina pectoris; E03.9 Hypothyroidism, unspecified; K21.9 Gastro-esophageal reflux disease without esophagitis; K76.0 Fatty (change of) liver, not elsewhere classified; N18.3 Chronic kidney disease, stage 3 (moderate); G30.1 Alzheimer's disease with late onset; F02.80 Dementia in other diseases classified elsewhere, unspecified severity, without behavioral disturbance, psychotic disturbance, mood disturbance, and anxiety; G89.18 Other acute postprocedural pain; M15.9 Polyosteoarthritis, unspecified; W19.XXXA Unspecified fall, initial encounter; Z88.5 Allergy status to narcotic agent; Z96.641 Presence of right artificial hip joint; Z79.82 Long term (current) use of aspirin; Z79.899 Other long term (current) drug therapy
CPT/HCPCS: 01630-QZ; 36415; 64447-QZ; 76000; 80048; 85025; 94150; A9270-GY; C1776; J0171; J0690; J0735; J1650; J1885; J2001; J2250; J2270; J2370; J2405; J2704; J2710; J2795; J3010; J3490; J7030; J7050; J7120